=== PATIENT | male | born 1990 | race Caucasian/White ===

== ENCOUNTER 2016-04-12 14:29 | Emergency (ER) | payer OTHER ==
--- NOTE | 2016-04-12 15:22 | UC ---
Respiratory Complaint HPI - HPI Summary HPI Summary: Smoker x years, with cough for some time. Unwell x 4 days with nausea and headache, followed by increased cough over several days. Productive of dark yellow sputum. Emesis x 1 several days ago. Headache resolved. No sore throat. Diarrhea yesterday, no stool since then. Appetite and activity decreased. 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 - here with mother Onset/Duration: Gradual Onset, Lasting Days - 4 Timing: Intermittent Episodes Severity Initially: Moderate Severity Currently: Mild Character: Cough: Productive Aggravating Factors: Deep Breaths, Recumbent Position Alleviating Factors: Upright Position Associated Signs And Symptoms: Positive: Chills, Nasal Congestion, Sinus Discomfort - Risk Factors Pulmonary Embolism Risk Factors: Smoking Cardiac Risk Factors: Smoking Tuberculosis Risk Factors: Negative - Allergies/Home Medications Allergies/Adverse Reactions: Allergies Allergy/AdvReac Type Severity Reaction Status Date / Time Cefuroxime [From Ceftin] AdvReac See Comment Verified 04/12/16 15:02 PMH/Surg Hx/FS Hx/Imm Hx Previously Healthy: Yes - smoking dependent - Surgical History Surgical History: Yes Surgery Procedure, Year, and Place: RIGHT HAND FX WITH METAL PLATE- NOV 2015 - Family History Known Family History: Positive: Diabetes - maternal grandmother - Social History Occupation: Unemployed Lives: With Family Alcohol Use: None Substance Use Type: None Substance Use Comment - Amount & Last Used: DAILY Smoking Status (MU): Heavy Every Day Tobacco Smoker Type: Cigarettes Amount Used/How Often: 1 PK DAILY Household Exposure Type: Cigarettes Review of Systems Constitutional: Negative Skin: Negative Eyes: Negative ENT: Negative Respiratory: Cough Cardiovascular: Negative Gastrointestinal: Vomiting - resolved, Diarrhea - resolved Genitourinary: Negative Motor: Negative Neurovascular: Negative Musculoskeletal: Negative Neurological: Headache - not at present Psychological: Negative All Other Systems Reviewed And Are Negative: Yes Physical Exam Triage Information Reviewed: Yes Appearance: Ill-Appearing - looks mildly unwell. Stable vitals. Vital Signs: Initial Vital Signs Temp 98.7 F 04/12/16 15:03 Pulse 74 04/12/16 15:03 Resp 17 04/12/16 15:03 BP 127/71 04/12/16 15:03 Pulse Ox 97 04/12/16 15:03 ENT: Positive: Pharyngeal erythema, TMs normal Dental Exam: Other - poor dental hygiene Neck: Positive: Supple, Nontender, No Lymphadenopathy Respiratory: Positive: Lungs clear, Normal breath sounds. Negative: Crackles, Rhonchi, Stridor, Wheezing Cardiovascular: Positive: RRR, No Murmur Abdomen Description: Positive: Nontender, No Organomegaly Bowel Sounds: Positive: Present Musculoskeletal Exam: Normal Neurological: Positive: Alert Psychological Exam: Normal Skin: Positive: Other - scar right hand, scars left forearm. UC Diagnostic Evaluation - Laboratory O2 Sat by Pulse Oximetry: 97 Respiratory Course/Dx - Course Course Of Treatment: amoxicillin to treat likely sinus source. - Differential Dx/Diagnosis Differential Diagnosis/HQI/PQRI: Asthma, Bronchitis, Influenza, Laryngitis, Sinusitis Provider Diagnoses: sinusitis; respiratory illness. Discharge - Discharge Plan Condition: Stable Disposition: HOME Prescriptions: Amoxicillin (*) 875 mg PO BID #20 tab Patient Education Materials: Sinusitis (ED) Additional Instructions: The source of the infection is most likely in the sinuses, and you are being treated with an antibiotic to decrease the drainage and to prevent progression to the lungs because of your smoking and pneumonia history. Stopping smoking would decrease your risk of respiratory illness
[2016-04-12 15:26] VITALS: BP 127/71
== END 2016-04-12 15:55 | disposition home or self-care (01) ==
LOC: UCCORT 14:29
DX: J32.9 Chronic sinusitis, unspecified (principal); J98.9 Respiratory disorder, unspecified; R03.0 Elevated blood-pressure reading, without diagnosis of hypertension; Z88.1 Allergy status to other antibiotic agents; F17.210 Nicotine dependence, cigarettes, uncomplicated
CPT/HCPCS: 99212; G0463